=== PATIENT | female | born 1980 | race Two or more races ===

== ENCOUNTER 2021-07-11 07:15 | Inpatient (IN) | payer OTHER ==
[~2021-07-11] VITALS: Ht 149.9 cm; Wt 2.3 kg
[2021-07-11] MEDS ORDERED: PRENA PO (08:47)
[2021-07-13] MEDS ORDERED: ATABEX OB TABL1 EACH (13:04)
== END 2021-07-15 16:19 | disposition home or self-care (01) | DRG 785 ==
LOC: LDR 07-13 07:15 → O/R 07-13 07:15 → LDR 07-13 16:30 → SURG-SUITE 07-13 17:20
PROVIDERS: ADMIT Obstetrics & Gynecology; ATTEND Obstetrics & Gynecology
PROC: 0UB70ZZ Excision of Bilateral Fallopian Tubes, Open Approach (ICD-10-PCS; 2021-07-13)
PROC: 0UB90ZZ Excision of Uterus, Open Approach (ICD-10-PCS; 2021-07-13)
PROC: 4A1HXCZ Monitoring of Products of Conception, Cardiac Rate, External Approach (ICD-10-PCS; 2021-07-13)
PROC: 10D00Z1 Extraction of Products of Conception, Low, Open Approach (ICD-10-PCS; principal; 2021-07-13 16:30)
DX: O34.211 Maternal care for low transverse scar from previous cesarean delivery (principal); Z30.2 Encounter for sterilization; Z3A.39 39 weeks gestation of pregnancy; Z37.0 Single live birth; Z20.822 Contact with and (suspected) exposure to COVID-19; O34.13 Maternal care for benign tumor of corpus uteri, third trimester; D25.2 Subserosal leiomyoma of uterus

== ENCOUNTER 2021-07-12 04:16 | Outpatient (CLI) | payer OTHER ==
[~2021-07-12 04:16] MED LIST: PRENA PO
[2021-07-13] MEDS ORDERED: ATABEX OB TABL1 EACH (13:04)
== END 2021-07-12 17:17 | disposition home or self-care (01) ==
LOC: OBS/DEL 04:16
PROVIDERS: ATTEND Obstetrics & Gynecology
DX: O47.1 False labor at or after 37 completed weeks of gestation (principal); Z3A.39 39 weeks gestation of pregnancy